=== PATIENT | male | born 1980 | race Caucasian/White ===

== ENCOUNTER 2019-02-02 13:50 | Emergency (ER) | payer OTHER ==
[~2019-02-02] VITALS: Ht 180.3 cm; Wt 113.4 kg
[2019-02-02 14:41] VITALS: BP 136/72
--- NOTE | 2019-02-02 15:19 | ER.PDOC ---
General Chief Complaint: Cough/Congestion Stated Complaint: FLU LIKE SYMPTOMS Time seen by MD: 15:18 Source: patient Exam Limitations: no limitations History of Present Illness Initial Comments Flu-like symptoms for 1 week Timing/Duration: gradual Severity: moderate Associated Symptoms: fever/chills, runny nose, cough Constitutional: see HPI EENTM: see HPI Respiratory: see HPI Cardiovascular: no symptoms reported Gastrointestinal: no symptoms reported All Other Systems: Reviewed and Negative Past Medical History Medical History: no pertinent history Surgical History: no surgical history Social History Smoking: non-smoker Alcohol Use: none Drug Use: none Physical Exam General Appearance: alert, no distress Nose: rhinorrhea Throat: pharynx nml, airway nml Neck: nml inspection, supple Respiratory: no resp.distress, breath sounds nml Abdomen: non-tender, no organomegaly CVS: reg rate & rhythm, heart sounds nml Skin: color nml, no rash, warm/dry Extremities: non-tender, nml ROM, no pedal edema NEURO/PSYCH: oriented x 3, CN's nml as tested, motor nml, sensation nml, mood/affect nml Results/Orders Results/Orders Orders - KERI BLANCO MD Influenza A&B (02/02/19 15:12) Strep Screen (02/02/19 15:12) Vital Signs Date Time Temp Pulse Resp B/P (MAP) Pulse Ox O2 Delivery O2 Flow Rate FiO2 02/02/19 14:41 98.2 68 17 02/02/19 14:41 98.2 68 17 136/72 (93) 94 Room Air 02/02/19 14:31 98.2 68 17 94 Room Air Laboratory Tests Test 02/02/19 14:49 Influenza Type A Antigen NEGATIVE (NEG) Influenza B Immunofluorescence NEGATIVE (NEG) Group A Streptococcus Screen NEGATIVE (NEGATIVE) Departure Time of Disposition: 15:47 Disposition: 01 HOME, SELF-CARE Impression: Primary Impression: URI, acute Condition: Stable Referrals: PCP,UNKNOWN (PCP) PRIMARY CARE PROVIDER Additional Instructions: Mucinex DM OTC as directed Afrin nose drops OTC as directed F/U with PCP in 1 week Duration or Time Spent with Pa: 30 mins KERI BLANCO MD Feb 02, 2019 15:18
== END 2019-02-02 15:52 | disposition home or self-care (01) ==
LOC: ER 13:50
DX: J06.9 Acute upper respiratory infection, unspecified (principal)
CPT/HCPCS: 87070; 87804; 87880; 99284